=== PATIENT | female | born 1990 | race Asian ===

== ENCOUNTER 2022-04-11 15:07 | Emergency (ER) | payer SELFPAY ==
--- NOTE | 2022-04-11 15:15 | DI.RAD_ITS ---
Exam(s) XR SACRUM COCCYX EXAM: XR SACRUM COCCYX CLINICAL HISTORY: fell on coccyx, severe pain, suspect fx. TECHNIQUE: 2D digital imaging was performed. COMPARISON: No exams were available for comparison FINDINGS: BONES: No acute fracture is present. No bony destructive lesion is seen. JOINTS: No dislocation present. Hip joint spaces are maintained. SI joints not widened. SOFT TISSUE: Visualized bowel unremarkable. IMPRESSION: Unremarkable radiographs of the sacrum and coccyx DATA REPOSITORY: RADIATION DOSE DELIVERED:
[2022-04-11 15:19] VITALS: BP 101/51; PULSE 66; TEMP 37; O2SAT 100
--- NOTE | 2022-04-11 15:28 | W.ED.GENAD ---
Discharge Plan Disposition Patient Disposition: Home Condition: Good Discharge Details Chief Complaint: Nk/Back Pain Clinical Impression: Coccyx contusion Primary Care Provider: None,None ED Provider: Marty Vuong Home Meds and New Rx's Prescriptions: No Action No Known Home Meds Discharge Instructions Instructions: Coccyx Injury (ED) Additional Instructions: At this time there is no evidence of large fracture on the bone, however I suspect that there is a small fracture present. It would likely take 1 to 2 months for this to heal. Please take 1000 mg of Tylenol every 6 hours, 500 mg of naproxen every 12 hours, and topical Voltaren gel every 8 hours as needed. Please use the seat cushion that I showed you from [facility] or your local pharmacy. If you notice any worsening of your symptoms, or any new symptoms such as vomiting, diarrhea, fever, chills, shortness of breath, chest pain, numbness, weakness, or fainting , please return immediately to the emergency department for reevaluation. Please follow up with your primary care provider as soon as possible for reassessment and reevaluation. As always, it was a pleasure participating in your medical care today. Medical Decision Making This is a pleasant 31-year-old female with no significant past medical history who is new to the area who presents with her significant other and a commercial property manager with complaint of coccyx pain. 5 days ago the patient slipped on ice and landed on her coccyx, since then she has had significant pain. She denies any pain in her lower back, any saddle anesthesia, any numbness or tingling, any hematochezia, melena or acholic stool. She denies any dysuria. Pain is made slightly better by Tylenol and naproxen. Otherwise improved by nothing. Pain is made worse with movement and sitting. No other complaints at this time. No other modifying factors. No lower lumbar tenderness. No saddle anesthesia. Symptoms inconsistent with cauda equina syndrome. Symptoms most concerning for sacral and coccyx fracture. We will get an x-ray to rule this out. We will monitor closely and reassess. Physical exam demonstrates notably tender coccyx and lower sacral area. 4:29 PM X-ray results are negative for fracture, however clinically I still suspect she has a small fracture there. Will recommend continue naproxen, Tylenol, and Voltaren gel. Symptoms are consistent with constipation, diverticulitis, ovarian torsion. She has no abdominal pain whatsoever. No evidence of cauda equina syndrome whatsoever. I did recommend specific coccyx seat cushion to the family as well. Discussed red flags which to return. I have extensively reviewed the treatment plan and discharge instructions with the patient. I have addressed all patient concerns at this time. The patient was made aware of what symptoms to monitor for that would warrant a return to the emergency department. Discussed the plan with the patient, they demonstrate verbal understanding and agreement with our assessment and plan at this time. The documentation in this chart was dictated using [employer] dictation software. Please excuse any dictation errors. INDINGS: BONES: No acute fracture is present. No bony destructive lesion is seen. JOINTS: No dislocation present. Hip joint spaces are maintained. SI joints not widened. SOFT TISSUE: Visualized bowel unremarkable. IMPRESSION: Unremarkable radiographs of the sacrum and coccyx HPI General Date/Time Provider Initiated Documentation: 04/11/22 15:12. 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 5 days ago the patient slipped on ice and landed on her coccyx, since then she has had significant pain. She denies any pain in her lower back, any saddle anesthesia, any numbness or tingling, any hematochezia, melena or acholic stool. She denies any dysuria. Pain is made slightly better by Tylenol and naproxen. Otherwise improved by nothing. Pain is made worse with movement and sitting. No other complaints at this time. No other modifying factors. Related Data Home Medications Medication Instructions Recorded Confirmed Unknown [No Known Home Meds] 04/11/22 04/11/22 Allergies Allergy/AdvReac Type Severity Reaction Status Date / Time No Known Allergies Allergy Unverified 04/11/22 15:27 General Stated Complaint: Nk/Back Pain SULY: 3 Review of Systems All systems reviewed & are unremarkable except as noted in HPI and below PFSH All Active Problems (Updated 04/11/22 @ 16:33 by Marty Vuong DO) Coccyx contusion (Acute) Social History Smoking/Tobacco Use Status: Never Smoking risk assessment performed?: Yes Alcohol Intake: never Drug use: Never Substance use type: does not use Exam Narrative Exam Narrative: 1.Const: Well-nourished, Well-developed, appearing stated age 2.Eyes: PERRL, no conjunctival injection, and symmetrical lids. 3.ENT: Atraumatic external nose and ears. Moist MM. Neck: Symmetric, trachea midline, No thyromegaly. 4.CVS: +S1/S2, No murmurs or gallops. Peripheral pulses 2+ and equal in all extremities. Brisk capillary refill in all extremities. 5.RESP: Unlabored respiratory effort. Clear to auscultation bilaterally. No wheezes rales or rhonchi 6.GI: Soft, Nontender/Nondistended, No hepatosplenomegaly. No guarding or rebound. 7.MSK: Normocephalic/Atraumatic, Extremities w/o deformity. Notable tenderness over the coccyx and lower sacrum. No hip tenderness, no lumbar spine tenderness. No saddle anesthesia. Good rectal tone. 8.Skin: Warm, Dry. No rashes or lesions. 9.Neuro: sharemilker II-XII grossly intact. Sensation grossly intact, no focal neurologic deficits. 10.Psych: (AAO) x3. Appropriate mood and affect Course Vital Signs Vital signs: Vital Signs Temperature 37.0 C 04/11/22 15:19 Pulse 66 04/11/22 15:19 Blood Pressure 101/51 L 04/11/22 15:19 Pulse Oximetry 100 04/11/22 15:19 Temperature 37.0 C 04/11/22 15:19 Temperature Source Temporal Artery Scan 04/11/22 15:19 Pulse 66 04/11/22 15:19 Respiratory Effort 04/11/22 15:22 Blood Pressure 101/51 L 04/11/22 15:19 Blood Pressure Position Sitting 04/11/22 15:19 Pulse Oximetry 100 04/11/22 15:19 Oxygen Delivery Method Room Air 04/11/22 15:19 Oxygen Flow Rate 0 04/11/22 15:19 Pain Level 9 04/11/22 15:25
[2022-04-11 16:43] VITALS: BP 105/64; PULSE 64; TEMP 36.6; O2SAT 100
== END 2022-04-11 16:45 | disposition home or self-care (01) ==
PROVIDERS: Emergency Provider Student in an Organized Health Care Education/Training Program
DX: S30.0XXA Contusion of lower back and pelvis, initial encounter (principal); W00.0XXA Fall on same level due to ice and snow, initial encounter
CPT/HCPCS: 99283; 72220; 99282